=== PATIENT | female | born 1985 | race Caucasian/White ===

== ENCOUNTER 2022-11-05 01:46 | Observation (INO) | payer OTHER ==
[2022-11-05] MEDS ORDERED: SODIUM CHLORIDE 0.9% 1,000 ML IV ONE (01:59)
[2022-11-05 02:19] LABS: HCT 42.7 % (34.0-46.0); HGB 14.1 gm/dL (11.4-16.0); MCH 28.5 pg (25.0-35.0); MCV 86.5 fL (80.0-100.0); Mean Platelet Volume 7.7; Platelet Count 254 k/uL (150-450); RBC 4.93 m/uL (3.80-5.40); RDW 13.5 % (11.5-15.5); WBC 21.1 k/uL (3.8-10.6)
--- NOTE | 2022-11-05 02:19 | ED ---
General Adult HPI - General Chief complaint: Neuro Symptoms/Deficit Stated complaint: Allergic Reaction Time Seen by Provider: 11/05/22 01:58 Source: patient Mode of arrival: EMS - History of Present Illness Initial comments: This is a 37-year-old female with a reported past medical history including asthma, GERD and latent TB on antibiotics presents emergency department via EMS after ALLERGIC reaction. The patient was an overall poor historian but stated that she is currently on antibiotics for her latent TB and stated this is weak 7 where she takes medications once a week on Sundays. The patient reported that she had a previous mild reaction to the antibiotic's but was told to continue take them. The patient took the and about X earlier today and had a rash that made her go to the emergency department at a different facility. The patient was discharged home and stated that when she got home she started to have a rash again and shortness of breath therefore she called EMS. The patient reported that she had "numbness all over" and on EMS arrival, the patient was given an epinephrine IM dose. The patient on arrival denied of any rash or any concerning signs for ALLERGIC reaction. The patient initially reported that she was numb everywhere to EMS and was not cooperative with her exam. It was reported there was also significant family stress at home and is undergoing a separation. The patient denied any acute pain or distress at this time and did admit that she is "feeling better and getting back to normal." The patient denied any shortness of breath, difficulty in breathing as well as any nausea and vomiting. - Related Data Allergies Allergy/AdvReac Type Severity Reaction Status Date / Time acetaminophen AdvReac Anaphylaxis Verified 11/05/22 02:05 egg AdvReac Vomiting Verified 11/05/22 02:05 erythromycin base AdvReac Rash/Hives Verified 11/05/22 02:05 ibuprofen AdvReac Anaphylaxis Verified 11/05/22 02:05 montelukast [From Singulair] AdvReac Rash/Hives Verified 11/05/22 02:05 shellfish derived [Shellfish] AdvReac Abdominal Verified 11/05/22 02:05 Pain Review of Systems ROS Statement: Those systems with pertinent positive or pertinent negative responses have been documented in the HPI. ROS Other: All systems not noted in ROS Statement are negative. Past Medical History Past Medical History: Asthma, GERD/Reflux Past Surgical History: Section, Cholecystectomy Additional Past Surgical History / Comment(s): deviated septum Past Psychological History: No Psychological Hx Reported Smoking Status: Never smoker Past Alcohol Use History: None Reported Past Drug Use History: None Reported General Exam Limitations: no limitations General appearance: alert, in no apparent distress Head exam: Present: atraumatic, normocephalic, normal inspection Eye exam: Present: normal appearance, PERRL Pupils: Present: normal accommodation ENT exam: Present: normal exam, normal oropharynx, mucous membranes moist Neck exam: Present: normal inspection, full ROM Respiratory exam: Present: normal lung sounds bilaterally Cardiovascular Exam: Present: regular rate, normal rhythm, normal heart sounds GI/Abdominal exam: Present: soft, normal bowel sounds Extremities exam: Present: normal inspection, full ROM Back exam: Present: normal inspection, full ROM Neurological exam: Present: alert, oriented X3, CN II-XII intact Psychiatric exam: Present: normal affect, normal mood Skin exam: Present: warm, dry Course Vital Signs 11/05/22 01:49 Temperature 98.4 F Pulse Rate 115 H Respiratory 22 Rate Blood Pressure 137/99 O2 Sat by Pulse 99 Oximetry EKG Findings - EKG Comments: EKG Findings:: An EKG was obtained and was interpreted by myself showing a rate of 95, AR interval 151, QRS duration of 102 and QTC of 395. This EKG showed a normal sinus rhythm with no ST segment elevation or depression noted. Medical Decision Making - Medical Decision Making Was pt. sent in by a medical professional or institution (, [facility], PAD ASSEMBLER, urgent c are, hospital, or [facility]...) When possible be specific @ -No Did you speak to anyone other than the patient for history (EMS, parent, family, police, friend...)? What history was obtained from this source @ -Yes, EMS was present and stated that the patient had increasing improvement however still had continued generalized muscle weakness Did you review nursing and triage notes (agree or disagree)? Why? @ -I reviewed and agree with nursing and triage notes Were old charts reviewed (outside hosp., previous admission, EMS record, old EKG, old radiological studies, urgent care reports/EKG's, [facility] records)? Report findings @ -No old charts were reviewed Differential Diagnosis (chest pain, altered mental status, abdominal pain women, abdominal pain men, vaginal bleeding, weakness, fever, dyspnea, syncope, headache, dizziness, GI bleed, back pain, seizure, CVA, palpatations, mental health)? @ -Electrolyte abnormality, conversion disorder EKG interpreted by me (3pts min.). @ -As above X-rays interpreted by me (1pt min.). @ -None done CT interpreted by me (1pt min.). @ -None done U/S interpreted by me (1pt. min.). @ -None done What testing was considered but not performed or refused? (CT, X-rays, U/S, labs)? Why? @ -None What meds were considered but not given or refused? Why? @ -None Did you discuss the management of the patient with other professionals (professionals i.e. , PA, PAD ASSEMBLER, lab, RT, psych nurse, public health social worker, claims account manager, teacher, chief administrative officer, heel caser)? Give summary @ -Yes, admitting physician was contacted regarding patient admission to observation. Was smoking cessation discussed for >3mins.? @ -No Was critical care preformed (if so, how long)? @ -No Were there social determinants of health that impacted care today? How? (Homelessness, low income, unemployed, alcoholism, drug addiction, transportation, low edu. Level, literacy, decrease access to med. care, group home, rehab)? @ -No Was there de-escalation of care discussed even if they declined (Discuss DNR or withdrawal of care, Hospice)? DNR status @ -No What co-morbidities impacted this encounter? (DM, HTN, Smoking, COPD, CAD, Cancer, CVA, ARF, Chemo, Hep., AIDS, mental health diagnosis, sleep apnea, morbid obesity)? @ -Latent TB Was patient admitted / discharged? Hospital course, mention meds given and route, prescriptions, significant lab abnormalities, going to OR and other pertinent info. @ -The patient was seen and evaluated emergency department. On physical exam, the patient was resting in bed without any acute distress. Vital signs admission were stable. Due to the nature of the patient's vague complaints including generalized muscle weakness and numbness "all over her body" laboratory workup was obtained however there was no imaging at this was unlikely a focal neurologic deficit. On physical exam, the patient did have sensation in all extremities however due to effort had decreased range of motion. The patient's white blood cell count was elevated but this is secondary to the patient receiving steroids previously earlier in the day for the ALLERGIC reaction. The patient denied of any further ALLERGIC reaction type symptoms therefore did not require any further medications for this. The patient was told of the results and stated that she had improvement however stated that she still had leg heaviness in the bilateral lower extremities. I did suggest that the patient stays for observation to see neurology for further workup and evaluation however she was adamant about not staying and she wanted to leave A. The patient was convinced by her grandmother as well as during ambulation testing that she needed to stay. The patient was agreeable to this plan and was placed in observation. No computed tomography scan of the head was obtained secondary to the patient having vague, generalized muscle weakness and earlier generalized numbness, unlikely any specific neurologic deficit. The patient did state that she took her TB medications earlier yesterday and that she has had minor reactions previous see. The patient was able to ambulate in the emergency department with the assistance of myself and a nurse but did appear to have leg heaviness. The patient's primary care physician does not admit to this hospital therefore the patient was a city call patient and Dr. Yee did accept the patient for observation. The patient was placed observation with neurology on consult. Undiagnosed new problem with uncertain prognosis? @ -No Drug Therapy requiring intensive monitoring for toxicity (Heparin, Nitro, Insulin, Cardizem)? @ -No Were any procedures done? @ -No Diagnosis/symptom? @ -Generalized muscle weakness, numbness, NOS Acute, or Chronic, or Acute on Chronic? @ -Acute Uncomplicated (without systemic symptoms) or Complicated (systemic symptoms)? @ -Complicated Side effects of treatment? @ -No Exacerbation, Progression, or Severe Exacerbation? @ -No Poses a threat to life or bodily function? How? (Chest pain, USA, MA, pneumonia, PE, COPD, DKA, ARF, appy, cholecystitis, CVA, Diverticulitis, Homicidal, Suicidal, threat to staff... and all critical care pts) @ -No - Lab Data Result diagrams: 11/05/22 02:04 11/05/22 02:04 Lab Results 11/05/22 11/05/22 11/05/22 Range/Units 02:04 02:04 03:45 WBC 21.1 H (3.8-10.6) k/uL RBC 4.93 (3.80-5.40) m/uL Hgb 14.1 (11.4-16.0) gm/dL Hct 42.7 (34.0-46.0) % MCV 86.5 (80.0-100.0) fL MCH 28.5 (25.0-35.0) pg MCHC 33.0 (31.0-37.0) g/dL RDW 13.5 (11.5-15.5) % Plt Count 254 (150-450) k/uL MPV 7.7 Neutrophils % (Manual) 59 % Band Neuts % (Manual) 34 % Lymphocytes % (Manual) 2 % Monocytes % (Manual) 3 % Eosinophils % (Manual) 2 % Neutrophils # (Manual) 19.60 H (1.3-7.7) k/uL Lymphocytes # (Manual) 0.42 L (1.0-4.8) k/uL Monocytes # (Manual) 0.63 (0-1.0) k/uL Eosinophils # (Manual) 0.42 (0-0.7) k/uL Nucleated RBCs 0 (0-0) /100 WBC Manual Slide Review Performed Toxic Granulation Present Sodium 137 (137-145) mmol/L Potassium 3.9 (3.5-5.1) mmol/L Chloride 107 (98-107) mmol/L Carbon Dioxide 16 L (22-30) mmol/L Anion Gap 14 mmol/L BUN 12 (7-17) mg/dL Creatinine 0.64 (0.52-1.04) mg/dL Est GFR (CKD-EPI)AfAm >90 (>60 ml/min/1.73 sqM) Est GFR (CKD-EPI)NonAf >90 (>60 ml/min/1.73 sqM) Glucose 218 H (74-99) mg/dL Calcium 8.9 (8.4-10.2) mg/dL Magnesium 1.7 (1.6-2.3) mg/dL Total Bilirubin 1.0 (0.2-1.3) mg/dL AST 38 H (14-36) U/L ALT 39 H (4-34) U/L Alkaline Phosphatase 58 (38-126) U/L Total Protein 6.7 (6.3-8.2) g/dL Albumin 3.8 (3.5-5.0) g/dL Lipase 112 (23-300) U/L Urine Color Yellow Urine Appearance Clear (Clear) Urine pH 5.0 (5.0-8.0) Ur Specific Butler 1.004 (1.001-1.035) Urine Protein Negative (Negative) Urine Glucose (UA) 2+ H (Negative) Urine Ketones Negative (Negative) Urine Blood Negative (Negative) Urine Nitrite Negative (Negative) Urine Bilirubin Negative (Negative) Urine Urobilinogen <2.0 (<2.0) mg/dL Ur Leukocyte Esterase Negative (Negative) Urine HCG, Qual (Not Detectd) 11/05/22 Range/Units 03:45 WBC (3.8-10.6) k/uL RBC (3.80-5.40) m/uL Hgb (11.4-16.0) gm/dL Hct (34.0-46.0) % MCV (80.0-100.0) fL MCH (25.0-35.0) pg MCHC (31.0-37.0) g/dL RDW (11.5-15.5) % Plt Count (150-450) k/uL MPV Neutrophils % (Manual) % Band Neuts % (Manual) % Lymphocytes % (Manual) % Monocytes % (Manual) % Eosinophils % (Manual) % Neutrophils # (Manual) (1.3-7.7) k/uL Lymphocytes # (Manual) (1.0-4.8) k/uL Monocytes # (Manual) (0-1.0) k/uL Eosinophils # (Manual) (0-0.7) k/uL Nucleated RBCs (0-0) /100 WBC Manual Slide Review Toxic Granulation Sodium (137-145) mmol/L Potassium (3.5-5.1) mmol/L Chloride (98-107) mmol/L Carbon Dioxide (22-30) mmol/L Anion Gap mmol/L BUN (7-17) mg/dL Creatinine (0.52-1.04) mg/dL Est GFR (CKD-EPI)AfAm (>60 ml/min/1.73 sqM) Est GFR (CKD-EPI)NonAf (>60 ml/min/1.73 sqM) Glucose (74-99) mg/dL Calcium (8.4-10.2) mg/dL Magnesium (1.6-2.3) mg/dL Total Bilirubin (0.2-1.3) mg/dL AST (14-36) U/L ALT (4-34) U/L Alkaline Phosphatase (38-126) U/L Total Protein (6.3-8.2) g/dL Albumin (3.5-5.0) g/dL Lipase (23-300) U/L Urine Color Urine Appearance (Clear) Urine pH (5.0-8.0) Ur Specific Butler (1.001-1.035) Urine Protein (Negative) Urine Glucose (UA) (Negative) Urine Ketones (Negative) Urine Blood (Negative) Urine Nitrite (Negative) Urine Bilirubin (Negative) Urine Urobilinogen (<2.0) mg/dL Ur Leukocyte Esterase (Negative) Urine HCG, Qual Not Detected (Not Detectd) Disposition Clinical Impression: Generalized muscle weakness Disposition: ADMITTED IP TO THIS [facility] Condition: Stable Is patient prescribed a controlled substance at d/c from ED?: No Referrals: None,Stated [Primary Care Provider] - 1-2 days Time of Disposition: 05:20 Decision to Admit Reason: Admit from EC Decision Date: 11/05/22 Decision Time: 05:20
[2022-11-05 02:36] LABS: Band Neutrophils % 34 %; Eosinophils # (M) 0.42 k/uL (0-0.7); Lymphocytes # (M) 0.42 k/uL (1.0-4.8); Monocytes # (M) 0.63 k/uL (0-1.0); Neutrophils % (M) 59 %; Nucleated Red Blood Cells 0 /100 WBC (0-0); Total Cells Counted 200
[2022-11-05 02:37] LABS: Toxic Granulation Present
[2022-11-05 02:43] LABS: AST 38 U/L (14-36); African American GFR (CKD) >90 (>60 ml/min/1.73 sqM); Albumin 3.8 g/dL (3.5-5.0); Alkaline Phosphatase 58 U/L (38-126); Anion Gap 14 mmol/L; Blood Urea Nitrogen 12 mg/dL (7-17); Calcium 8.9 mg/dL (8.4-10.2); Carbon Dioxide 16 mmol/L (22-30); Chloride 107 mmol/L (98-107); Glucose 218 mg/dL (74-99); Lipase 112 U/L (23-300); Magnesium 1.7 mg/dL (1.6-2.3); Non-African American GFR(CKD) >90 (>60 ml/min/1.73 sqM); Potassium 3.9 mmol/L (3.5-5.1); Sodium 137 mmol/L (137-145); Total Protein 6.7 g/dL (6.3-8.2)
[2022-11-05 03:26] LABS: ALT 39 U/L (4-34)
[2022-11-05 04:01] LABS: Appearance,Urine Clear (Clear); Bilirubin,Urine Negative (Negative); Blood,Urine Negative (Negative); Color,Urine Yellow; Glucose,Urine (UA) 2+ (Negative); Ketones,Urine Negative (Negative); Leukocyte Esterase,Urine Negative (Negative); Nitrite,Urine Negative (Negative); Protein,Urine Negative (Negative); Specific Gravity,Urine 1.004 (1.001-1.035); Urobilinogen,Urine <2.0 mg/dL (<2.0)
[2022-11-05] MEDS ORDERED: NALOXONE 0.4 MG/ML 1 ML VIAL IV PRN (05:23)
--- NOTE | 2022-11-05 06:54 | P.HPIM ---
History of Present Illness H&P Date: 11/05/22 The patient is a 37-year-old female with a PMH of latent TB currently on week 7 of a 3 month course of likely isoniazid and rifapentine (patient does not remember the exact names but states that it's a once weekly 2 tablet dose) who presents to the emergency room with complaints of weakness, numbness, and lethargy. The patient states that she normally takes her about latent TB doses each Saturday and last Saturday when she took this dose, she developed severe flulike symptoms. She reportedly contacted the [facility] Department with whom she has been following who advised her that the symptoms are common with this regimen. Her symptoms gradually improved last week. Earlier today, she took her regular dose again at around 5 PM and as she was walking in a stroller with her 7-month-old baby, she again developed flulike symptoms but this time also reportedly developed hives and severe weakness. The weakness was so profound that she reportedly was unable to take her child out of the stroller and went into the house by herself where her symptoms gradually worsened. She subsequently activated EMS who asked for the patient upon arrival found the patient to have highs and be hypotensive. They administered epinephrine injection and took the patient to [facility]. There the patient was prescribed a course of steroids and was discharged home. After returning home, the patient then developed quickly worsening profound severe weakness and numbness of bilateral lower extremities along with bilateral upper extremities with left greater than right as well as numbness involving the entire face. EMS was again activated by the patient's grandmother who again administered epinephrine. The patient was brought into the [facility] at that time. The patient was reportedly and O 3 and was endorsing the above symptoms of weakness and numbness. She reported feeling better at the time of interview. She denied experiencing headache, chest discomfort, shortness of breath, nausea, vomiting, abdominal pain, diarrhea. The patient states that she has been under a tremendous amount of stress at home as she is undergoing a separation and managing a 7-month-old baby by herself with some family support. ED documentation reviewed and case discussed with ED provider. Review of systems: Pertinent positives and negatives as discussed in HPI, a complete review of systems was performed and all other systems are negative. Physical examination: Vital signs reviewed General: non toxic, no distress, appears at stated age, normal weight Derm: no unusual rashes/lesions, warm Head: atraumatic, normocephalic, symmetric Eyes: EOMI, no lid lag, anicteric sclera, pupils equal round reactive to light ENT: Nose and ears atraumatic Neck: No cervical lymphadenopathy, trachea midline, supple Mouth: no lip lesion, mucus membranes moist Cardiovascular: S1S2 reg, no murmur, positive dorsalis pedis pulse bilateral, no edema Lungs: CTA bilateral, no rhonchi, no rales, no accessory muscle use Abdominal: soft, nontender to palpation, no guarding Ext: muscle strength 2 out of 5 bilateral lower extremities, strength 4 out of 5 right upper extremity and 2 out of 5 left upper extremity grossly, no gross muscle atrophy, no contractures Neuro: CN II-XI grossly intact, no facial asymmetry noted, decreased sensation involving all 4 extremities Psych: Alert, oriented, appropriate affect Assessment: Weakness involving bilateral lower extremities and upper extremities left greater than right with numbness, rule out CVA versus conversion disorder Possible ALLERGIC reaction to isoniazid and Rifapentine (flulike illness, angioedema, and rash are very common side effect of the above regimen) Leukocytosis Hyperglycemia Abnormal LFTs Data Review: Laboratory evaluation in the emergency room was remarkable for leukocytosis of 21.1, CO2 16, glucose 218, AST 38, ALT 39, and an unremarkable UA. Plan: Neurology consulted Neuro checks CT brain ordered Fall precautions Leukocytosis and hyperglycemia likely due to steroids received earlier today at [facility] DVT prophylaxis: Heparin subq The patient is admitted with an anticipated less than 2 midnight stay for evaluation of weakness and numbness CODE STATUS: Full Code Discussed with: Patient Anticipated discharge place: Home Past Medical History Past Medical History: Asthma, GERD/Reflux Past Surgical History: Section, Cholecystectomy Additional Past Surgical History / Comment(s): deviated septum Past Psychological History: No Psychological Hx Reported Smoking Status: Never smoker Past Alcohol Use History: None Reported Past Drug Use History: None Reported - Past Family History Mother Family Medical History: Hypertension Medications and Allergies Allergies Allergy/AdvReac Type Severity Reaction Status Date / Time acetaminophen AdvReac Anaphylaxis Verified 11/05/22 02:05 egg AdvReac Vomiting Verified 11/05/22 02:05 erythromycin base AdvReac Rash/Hives Verified 11/05/22 02:05 ibuprofen AdvReac Anaphylaxis Verified 11/05/22 02:05 [facility] [[facility] AdvReac Rash/Hives Verified 11/05/22 02:05 shellfish derived [Shellfish] AdvReac Abdominal Verified 11/05/22 02:05 Pain Physical Exam Vitals: Vital Signs Temp Pulse Resp BP Pulse Ox 11/05/22 06:03 85 19 132/72 100 11/05/22 01:49 98.4 F 115 H 22 137/99 99 Intake and Output 11/04/22 11/04/22 11/05/22 14:59 22:59 06:59 Other: Weight 70.307 kg Results CBC & Chem 7: 11/05/22 02:04 11/05/22 02:04 Labs: Abnormal Lab Results - Last 24 Hours (Table) 11/05/22 11/05/22 11/05/22 Range/Units 02:04 02:04 03:45 WBC 21.1 H (3.8-10.6) k/uL Neutrophils # (Manual) 19.60 H (1.3-7.7) k/uL Lymphocytes # (Manual) 0.42 L (1.0-4.8) k/uL Carbon Dioxide 16 L (22-30) mmol/L Glucose 218 H (74-99) mg/dL AST 38 H (14-36) U/L ALT 39 H (4-34) U/L Urine Glucose (UA) 2+ H (Negative)
--- NOTE | 2022-11-05 08:24 | CT ---
EXAMINATION TYPE: CT brain wo con DATE OF EXAM: 11/05/2022 COMPARISON: INDICATION: Generalized weakness DLP: 1064.4 mGycm, Automated exposure control for dose reduction was used. CONTRAST: None CT of the brain is performed utilizing 3 mm thick sections through the posterior fossa and 3 mm thick sections through the remaining calvarium. Study is performed within 24 hours of arrival to the hosp ital. No abnormal hyperdensity is present to suggest an acute intracranial hemorrhage. No mass lesion is evident. No acute infarcts are evident. Ventricles and sulci are appropriate for the patient age. There is diffuse mucosal thickening through the maxillary sinuses. There is complete opacification of the Ethmoid air cells and sphenoid sinuses and frontal sinuses. Correlate for pansinusitis. Paranasa l sinus polyposis could be considered. IMPRESSIONS: 1. No acute intracranial process. Follow-up MRI can be performed as clinically indicated. 2. Pansinusitis versus sinus polyposis opacifying the paranasal sinuses.
[2022-11-05] MEDS ORDERED: NON FORMULARY DRUG (Albuterol Inhaler 90 MCG Puff) INHALATION PRN (14:06)
[2022-11-05] MEDS ORDERED: PANTOPRAZOLE 40 MG TABLET PO STA (14:34)
[2022-11-05] MEDS ORDERED: LORATADINE 10 MG TAB PO STA (14:34)
[2022-11-05] MEDS: ALBUTEROL NEBULIZED 2.5 MG/3 ML INHALATION PRN ×2 (15:14→20:08)
--- NOTE | 2022-11-05 15:14 | P.CNNES ---
History of Present Illness Consult date: 11/05/22 Requesting physician: Javon Foley Reason for Consult: Generalized weakness History of Present Illness: Patient is a 37-year-old right-handed female, with history of asthma, GERD, who is undergoing treatment for TB for latent tuberculosis for the last 7 weeks, came to the hospital by ambulance early this morning at 1:46 AM for possible drug reaction. 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 She became PPD positive and was diagnosed with latent TB 2 months ago. She started taking 2 different type of pills, which she claims is total 9 tablets each time, once a week every Saturday. She takes 2 different kind of pills, 3 of one type and 6 tablets of another. Yesterday she took as usual 9 tablets at 5 PM. About 30 minutes after, while she was out for a walk, she noticed blurred vision. She came inside her home, and noticed her eyes were red. She laid down. She thought it was an ALLERGIC reaction, took Mary Ellen. She noticed a rash and felt her throat was closing. She had difficulty breathing, therefore she was taken to [facility] where she was noted to have very low blood pressure. She was given steroids, her blood pressure was improved and she was sent home at around 10-11 PM. Patient states that when she arrived home, she sat down at the dining table for dinner and was drinking soup. She suddenly started feeling numbness in the feet bilaterally. She was holding juice and laid down, noticed that she couldn't move her legs. She noticed numbness progressed from feet to the knees, then the shoulder and in the face bilaterally. That it started affecting her arms all the way to the hand. She describes her facial numbness involving the cheeks bilaterally. EMS flow sheet not available in the chart. Vital signs on arrival blood pressure 137/99, pulse rate 115, temperature 98.4. Blood test shows WBC 21.1, hemoglobin 14.1 with normal platelets 254. Chem-7 is normal, AST mildly elevated 38, ALT 39. UA is negative. Urine hCG negative. EKG shows sinus rhythm. CT brain revealed no acute intracranial process. Pansinusitis versus sinus polyposis opacifying the paranasal sinuses. I personally reviewed CT head, agree with the findings. There is extensive opacification of bilateral frontal, complete ethmoid, bilateral sphenoid and near complete opacification of bilateral maxillary sinuses. At present patient states that when she tries to make any effort, the numbness comes back. When she sits down and lays down, her symptoms are better. Overall the symptoms involves both feet, left more than right, both arms, left side more. Also her left facial is more numb as compared to the right. She states that her symptoms on the right side is "barely noticeable". Patient states that she denies any slurred speech, facial droop or mental confusion or loss of consciousness, although patient states that her grandmother felt that she was not following orders or answering questions appropriately although she herself felt she was fine. She still feels weakness in the legs. Patient states the symptoms at present "comes and goes". Patient does take Mary Ellen, AcipHex, Ventolin inhaler, Trelegy Ellipta. Also on 2 different type of TB medications. She has never smoked, does not drink alcoho l. She is healthy, denies any blood pressure diabetes. Review of Systems All general symptoms only on the day of antibiotics Constitutional: Reports chills, Reports fatigue, Reports fever, Reports sweats, Reports weakness Eyes: bilateral blurred vision, denies diplopia, denies pain, denies loss of vision Ears: deny: decreased hearing, ear discharge, earache, tinnitus Ears, nose, mouth and throat: Reports nasal congestion, Reports post-nasal drip, Reports sinus pain, Reports sinus pressure, Denies headache, Denies sore throat Cardiovascular: Denies chest pain, Denies shortness of breath Respiratory: Denies cough, Denies excessive sputum Gastrointestinal: Denies abdominal pain, Denies constipation, Denies diarrhea, Denies nausea, Denies vomiting Genitourinary: Reports incomplete emptying, Denies dysuria, Denies hematuria Musculoskeletal: Reports muscle weakness, Reports myalgias, Denies low back pain, Denies neck pain Integumentary: Denies pruritus, Denies rash Neurological: Reports as per HPI Psychiatric: Denies anxiety, Denies depression Endocrine: Denies fatigue, Denies weight change Hematologic/Lymphatic: Denies easy bleeding, Denies easy bruising Allergic/Immunologic: Reports seasonal allergies, Reports wheezing Past Medical History Past Medical History: Asthma, GERD/Reflux Past Surgical History: Section, Cholecystectomy Additional Past Surgical History / Comment(s): deviated septum Past Psychological History: No Psychological Hx Reported Smoking Status: Never smoker Past Alcohol Use History: None Reported Past Drug Use History: None Reported - Past Family History Mother Family Medical History: Hypertension Medications and Allergies Home Medications Medication Instructions Recorded Confirmed Type Albuterol Inhaler [Ventolin Hfa 2 puff INHALATION RT-QID PRN 11/05/22 11/05/22 History Inhaler] Albuterol Nebulized [Ventolin 2.5 mg INHALATION RT-QID PRN 11/05/22 11/05/22 History Nebulized] Fexofenadine HCl [Mary Ellen Allergy] 180 mg PO DAILY 11/05/22 11/05/22 History Fluticasone/Umeclidin/Vilanter 1 puff INHALATION RT-DAILY 11/05/22 11/05/22 History [Trelegy Ellipta 200-62.5-25] RABEprazole SODIUM [Aciphex] 20 mg PO DAILY 11/05/22 11/05/22 History Allergies Allergy/AdvReac Type Severity Reaction Status Date / Time acetaminophen Allergy Anaphylaxis Verified 11/05/22 07:11 aspirin Allergy Anaphylaxis Verified 11/05/22 07:11 erythromycin base Allergy Rash/Hives Verified 11/05/22 07:11 ibuprofen Allergy Anaphylaxis Verified 11/05/22 07:11 kiwi Allergy Unknown Verified 11/05/22 07:11 montelukast [From Singulair] Allergy Rash/Hives Verified 11/05/22 07:11 NSAIDS (Non-Steroidal Allergy Anaphylaxis Verified 11/05/22 07:11 Anti-Inflamma egg AdvReac Vomiting Verified 11/05/22 07:11 shellfish derived [Shellfish] AdvReac Abdominal Verified 11/05/22 07:11 Pain dust Allergy Unknown Uncoded 11/05/22 07:11 figs Allergy Unknown Uncoded 11/05/22 07:11 preservatives Allergy Unknown Uncoded 11/05/22 07:11 Physical Examination - Vital Signs Vital Signs: Vital Signs Temp Pulse Pulse Resp BP BP Pulse Ox 11/05/22 08:20 98.1 F 72 18 98/63 99 11/05/22 06:03 85 19 132/72 100 11/05/22 01:49 98.4 F 115 H 22 137/99 99 Intake and Output 11/04/22 11/05/2223 22:59 06:59 14:59 Output Total 387 Balance -387 Output: Post Void Residual 387 Other: Weight 70.307 kg Patient is a young female, very pleasant, in no acute distress. Patient is alert awake oriented to time place and person. Speech and language functions are normal. Patient can name and repeat very well. No aphasia or dysarthria. Attention, concentration and fund of knowledge is adequate. On cranial nerve examination, pupils are equal, round and reacting to light, visual perales are full on confrontation, with no neglect on double simultaneous stimulation. Extraocular muscles are intact with no nystagmus. Face is symmetric, tongue protrudes to the midline. Palatal elevation and sensation normal, hearing and shoulder shrug normal, facial sensation normal. On muscle strength testing, there is no pronator drift and the strength is normal in arms and legs distally and proximally. Deep tendon reflexes are symmetric 2 at the biceps, 2 brachioradialis, 1 at the knees, 1+ ankles and plantars downgoing bilaterally. Sensory to touch is feeling less on the left side of the body as compared to the right. There is no neglect on double simultaneous stimulation. Cerebellar function showed no ataxia for [id number] testing. No dysdiadochokinesia. No ataxia for [id number] testing on either side. Tone and bulk of muscles normal. Gait deferred.. On general examination, there is no carotid bruit or murmur, S1-S2 audible. Chest is clear on consultation. Abdomen is soft nontender. No organomegaly, bowel sounds present. Peripheral pulses are present. No edema. Results - Laboratory Findings CBC and BMP: 11/05/22 02:04 11/05/22 02:04 Abnormal Lab Findings: Abnormal Labs 11/05/22 11/05/22 11/05/22 02:04 02:04 03:45 WBC 21.1 H Neutrophils # (Manual) 19.60 H Lymphocytes # (Manual) 0.42 L Carbon Dioxide 16 L Glucose 218 H AST 38 H ALT 39 H Urine Glucose (UA) 2+ H Assessment and Plan Assessment: * Acute onset of paresthesias involving all 4 extremities including bilateral facial region, (left side more than right), and subjective weakness since last night. Her symptoms have improved although has persistent left-sided paresthesias. Her current neurological examination revealed normal muscle strength and cranial nerves with some decreased sensation on the left side of the body. Exact cause remains uncertain. * Recent diagnosis of latent TB, undergoing treatment with ATT medication for the last 7 weeks. * Pansinusitis noted on CT head. * History of DNS surgery in the past. * GERD * Asthma Plan: * Patient will undergo MRI of the brain and cervical spine with and without contrast to rule out structural abnormality. Patient has no headache, therefore we will hold off on MRV. * B12, folate, MMA, B6. * Consult ID for possible adverse effect to antituberculous medication. * Consult ENT for pansinusitis. * PT OT, evaluate gait. * Neurology will follow. Thank you for the consult. Time with Patient: Greater than 30
--- NOTE | 2022-11-05 16:40 | MR ---
EXAMINATION TYPE: MR brain wo cspine wo/w DATE OF EXAM: 11/05/2022 COMPARISON: 11/05/2022 CT brain HISTORY: Weakness and numbness CONTRAST: Performed utilizing 7 mL intravenous Gadavist gadolinium contrast. TECHNIQUE: Multiplanar, multiecho imaging on a 3.0 Juliette magnet is performed through the brain. Stud y is performed within 24 hours of arrival to the hospital. The craniovertebral junction is normal. The pituitary is normal. Diffusion-weighted imaging is performed. No abnormal hyperintensity is present to suggest an acute i ntracranial infarct or acute ischemic change. There is some linear white matter change within the right centrum semiovale adjacent to the ventricle . This is hyperintense on T2-weighted sequences. No enhancement is evident. Ventricles and sulci are appropriate for the patient age. Mucosal thickening is through maxillary sinus and ethmoid air cells. Frontal sinuses and sphenoid sin uses are opacified or mucosal thickening. IMPRESSIONS: 1. Solitary white matter changes in the right centrum semiovale is nonspecific. Microvascular ischemi c change, sclerosis, alignment disease, migraine headaches, vasculitis could be considered. This is n ot out of portion to the patient's age.
--- NOTE | 2022-11-05 22:22 | P.CONS ---
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 did not recall any history of exposure to somebody with pulmonary tuberculosis and no family history of TB patient recently tested positive with QuantiFERON TB Gold test which was done as we requested to for her [place] and the patient was started on weekly INH and rifampatin with the patient has taken for about 7 weeks now, patient mention after she took her dose on Saturday evening she started having increasing weakness numbness and lethargy and apparently patient noticed to having some flulike symptoms developed hives and severe weakness for the patient was taken to the [facility] ER with the patient did received dose of steroids she improved and subsequently was discharged home however the patient mention when she get home she noticed to having increasing numbness and weakness to bilateral lower extremity, for which EMS was called and the patient was brought to [facility] ER patient did mention she did have a resolution of her rash and hand numbness as well as weakness to lower extremities improving patient denies having any headache or URI symptoms has been complaining of some shortness of breath she attributing to her asthma denies have any nausea no vomiting no abdominal pain and no diarrhea patient on presentation to hospital to have a white count of 21.1 with a left shift creatinine has been normal AST ALT is mildly elevated urine has been negative patient did have a CT of the brain no acute intracranial process pansinusitis versus sinus polyposis infectious disease was consulted because of her allergic reaction to the latent TB medication and concern for possible sinusitis, patient currently denies having any pain to the sinuses area or any purulent nasopharyngeal secretion Review of Systems Positive point has been mentioned in HPI rest of the systems are negative Past Medical History Past Medical History: Asthma, GERD/Reflux Past Surgical History: Section, Cholecystectomy Additional Past Surgical History / Comment(s): deviated septum Past Psychological History: No Psychological Hx Reported Smoking Status: Never smoker Past Alcohol Use History: None Reported Past Drug Use History: None Reported - Past Family History Mother Family Medical History: Hypertension Medications and Allergies Home Medications Medication Instructions Recorded Confirmed Type Albuterol Inhaler [Ventolin Hfa 2 puff INHALATION RT-QID PRN 11/05/22 11/05/22 History Inhaler] Albuterol Nebulized [Ventolin 2.5 mg INHALATION RT-QID PRN 11/05/22 11/05/22 History Nebulized] Fexofenadine HCl [Mary Ellen Allergy] 180 mg PO DAILY 11/05/22 11/05/22 History Fluticasone/Umeclidin/Vilanter 1 puff INHALATION RT-DAILY 11/05/22 11/05/22 History [Trelegy Ellipta 200-62.5-25] RABEprazole SODIUM [Aciphex] 20 mg PO DAILY 11/05/22 11/05/22 History EPINEPHrine (Auto Inject) [Epipen] 0.3 mg IM ONCE PRN #1 each 11/06/22 Rx Allergies Allergy/AdvReac Type Severity Reaction Status Date / Time acetaminophen Allergy Anaphylaxis Verified 11/05/22 07:11 aspirin Allergy Anaphylaxis Verified 11/05/22 07:11 diclofenac [From Voltaren] Allergy Dyspnea Verified 11/05/22 18:11 erythromycin base Allergy Rash/Hives Verified 11/05/22 07:11 ibuprofen Allergy Anaphylaxis Verified 11/05/22 07:11 kiwi Allergy Unknown Verified 11/05/22 07:11 montelukast [From Singulair] Allergy Rash/Hives Verified 11/05/22 07:11 NSAIDS (Non-Steroidal Allergy Anaphylaxis Verified 11/05/22 07:11 Anti-Inflamma prifinium Allergy Dyspnea Verified 11/05/22 18:11 simethicone [From Mylicon] Allergy Rash/Hives Verified 11/05/22 18:11 egg AdvReac Vomiting Verified 11/05/22 07:11 shellfish derived [Shellfish] AdvReac Abdominal Verified 11/05/22 07:11 Pain dust Allergy Unknown Uncoded 11/05/22 07:11 figs Allergy Unknown Uncoded 11/05/22 07:11 preservatives Allergy Unknown Uncoded 11/05/22 07:11 Physical Exam Vitals: Vital Signs Temp Pulse Pulse Resp BP BP Pulse Ox 11/05/22 11:53 72 108/71 97 11/05/22 11:45 70 112/70 98 11/05/22 11:15 64 106/60 99 11/05/22 11:00 69 108/69 99 11/05/22 08:20 98.1 F 72 18 98/63 99 11/05/22 06:03 85 19 132/72 100 11/05/22 01:49 98.4 F 115 H 22 137/99 99 Intake and Output 11/04/22 11/05/22 11/05/22 22:59 06:59 14:59 Output Total 387 Balance -387 Output: Post Void Residual 387 Other: Weight 70.307 kg GENERAL DESCRIPTION: Middle-aged female lying in bed, no distress. No tachypnea or accessory muscle of respiration use. HEENT: Shows Pallor , no scleral icterus. Oral mucous membrane is dry. NECK: Trachea central, no thyromegaly. LUNGS: Unlabored breathing. Clear to auscultation anteriorly. No wheeze or crackle. HEART: S1, S2, regular rate and rhythm. ABDOMEN: Soft, no tenderness , guarding or rigidity EXTREMITIES: No edema of feet. SKIN: No rash, no masses palpable. NEUROLOGICAL: The patient is awake, alert, oriented x3, mood and affect normal. Results CBC & Chem 7: 11/06/22 07:01 11/06/22 07:01 Labs: Abnormal Lab Results - Last 24 Hours (Table) 11/05/22 11/05/22 11/05/22 Range/Units 02:04 02:04 03:45 WBC 21.1 H (3.8-10.6) k/uL Neutrophils # (Manual) 19.60 H (1.3-7.7) k/uL Lymphocytes # (Manual) 0.42 L (1.0-4.8) k/uL Carbon Dioxide 16 L (22-30) mmol/L Glucose 218 H (74-99) mg/dL AST 38 H (14-36) U/L ALT 39 H (4-34) U/L Urine Glucose (UA) 2+ H (Negative) Assessment and Plan (1) Latent tuberculosis Status: Acute Code(s): Z22.7 - LATENT TUBERCULOSIS SNOMED Code(s): 02412088 (2) Drug reaction Status: Acute Code(s): T50.905A - ADVERSE EFFECT OF UNSP DRUG/MEDS/BIOL SUBST, INIT SNOMED Code(s): 77346834 Plan: 1patient presented to hospital with what is described to be weakness generalized rash flulike symptoms possibly related to allergic reaction to her latent TB medication the patient is currently taking the form of INH and rifampatin weekly and both medication can cause the same reaction it would be hard to pinpoint which medication in order to responsible for her current symptoms, current CDC recommendation required the use of these 2 drugs for latent TB 2-for now we will recommend not resuming her INH and rifampin 3-patient will be advised to follow-up with her physician at the [facility] on discharge 4-as far as abnormality seen on the CT regarding the sinus disease possible related to allergy clinic not behaving as bacterial sinusitis and no need for systemic antibiotic therapy We will follow on clinical condition and cultures to further adjust medication if needed Thank you for this consultation we will follow the patient along with you Time with Patient: Greater than 30
[2022-11-06] MEDS ORDERED: PANTOPRAZOLE 40 MG TABLET PO SCH (07:30)
[2022-11-06 07:38] VITALS: BP 103/63; RESP 18; TEMP 98
[2022-11-06] MEDS ORDERED: SYMBICORT 160-4.5 MCG INHALER INHALATION SCH (08:00)
[2022-11-06 08:18] LABS: African American GFR (CKD) >90 (>60 ml/min/1.73 sqM); Anion Gap 7 mmol/L; Blood Urea Nitrogen 9 mg/dL (7-17); Calcium 8.6 mg/dL (8.4-10.2); Carbon Dioxide 23 mmol/L (22-30); Chloride 108 mmol/L (98-107); Glucose 94 mg/dL (74-99); Non-African American GFR(CKD) >90 (>60 ml/min/1.73 sqM); Potassium 3.9 mmol/L (3.5-5.1); Sodium 138 mmol/L (137-145)
[2022-11-06] MEDS: IPRATROPIUM 0.5 MG/2.5 ML NEBU INHALATION SCH ×2 (08:26→11:53)
[2022-11-06 08:47] VITALS: PULSE 88
[2022-11-06] MEDS ORDERED: LORATADINE 10 MG TAB PO SCH (09:00)
--- NOTE | 2022-11-06 11:12 | P.DS ---
Providers Date of admission: 11/05/22 05:23 Expected date of discharge: 11/06/22 Attending physician: Renato Yee MD Consults: 11/05/22 05:23 Consult Physician Routine Consulting Provider: Mike Lenz Consult Reason/Comments: Generalized weakness Do you want consulting provider notified?: Yes, Notify in am 11/05/22 10:53 Consult Physician Routine Consulting Provider: Antoine Madden Consult Reason/Comments: Latent TB, on TB meds with reaction, sinusitis Do you want consulting provider notified?: Yes 11/05/22 10:55 Consult Physician Routine Consulting Provider: Ed Truong Consult Reason/Comments: Pansinusitis Do you want consulting provider notified?: Yes Primary care physician: Stated None Hospital Course: Assessment: Weakness involving bilateral lower extremities and upper extremities left greater than right with numbness, rule out CVA versus conversion disorder Possible ALLERGIC reaction to isoniazid and Rifapentine (flulike illness, angioedema, and rash are very common side effect of the above regimen) Leukocytosis Hyperglycemia Abnormal LFTs Hospital course: The patient is a 37-year-old female with a PMH of latent TB currently on week 7 of a 3 month course of likely isoniazid and rifapentine (patient does not remember the exact names but states that it's a once weekly 2 tablet dose) who presented to the emergency room with complaints of weakness, numbness, and lethargy. Laboratory evaluation in the emergency room was remarkable for leukocytosis of 21.1, CO2 16, glucose 218, AST 38, ALT 39, and an unremarkable UA. Brain CT was negative for acute pathology. EKG showed normal sinus rhythm with normal axis and no evidence of ischemia. Case was discussed with the em ergency room provider, decision was made to admit the patient for neurology consultation. Neurology recommended MRI of the brain/cervical spine. This MRI did show cells or white matter changes in the right centrum semiovale which was nonspecific. She was up slightly discharged home with instructions to follow-up with neurology regarding these findings. Infectious disease was also consulted given her severe reaction to her latent TB regimen. She was instructed to discontinue her latent TB regimen and follow-up with the health department regarding alternative modalities of treatment for latent TB. 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 I spent 34 minutes corrugating this discharge on 11/06 Gen: awake, alert HEENT: normocephalic, atraumatic, good hearing acuity, moist mucous membranes Resp: good air exchange, breathing comfortably with no accessory muscle use CVS: good distal perfusion x 4, GI: soft, NTTP, ND : no SPT, no CVAT, walker catheter not present MSK: no pitting edema, no clubbing Neuro: non-focal, moving all extremities Psych: cooperative, euthymic mood Plan: Neurology consulted Neuro checks CT brain ordered Fall precautions Leukocytosis and hyperglycemia likely due to steroids received earlier today at [facility] DVT prophylaxis: Heparin subq The patient is admitted with an anticipated less than 2 midnight stay for evaluation of weakness and numbness CODE STATUS: Full Code Discussed with: Patient Anticipated discharge place: Home Patient Condition at Discharge: Good Plan - Discharge Summary Discharge Rx Participant: Yes New Discharge Prescriptions: New EPINEPHrine (Auto Inject) [Epipen] 0.3 mg IM ONCE PRN #1 each PRN Reason: Anaphylaxis Continue Fexofenadine HCl [Mary Ellen Allergy] 180 mg PO DAILY RABEprazole SODIUM [Aciphex] 20 mg PO DAILY Fluticasone/Umeclidin/Vilanter [Trelegy Ellipta 200-62.5-25] 1 puff INHALATION RT-DAILY Albuterol Nebulized [Ventolin Nebulized] 2.5 mg INHALATION RT-QID PRN PRN Reason: Shortness Of Breath Albuterol Inhaler [Ventolin Hfa Inhaler] 2 puff INHALATION RT-QID PRN PRN Reason: Shortness Of Breath Discharge Medication List Albuterol Inhaler [Ventolin Hfa Inhaler] 2 puff INHALATION RT-QID PRN 11/05/22 [History] Albuterol Nebulized [Ventolin Nebulized] 2.5 mg INHALATION RT-QID PRN 11/05/22 [History] Fexofenadine HCl [Mary Ellen Allergy] 180 mg PO DAILY 11/05/22 [History] Fluticasone/Umeclidin/Vilanter [Trelegy Ellipta 200-62.5-25] 1 puff INHALATION RT-DAILY 11/05/22 [History] RABEprazole SODIUM [Aciphex] 20 mg PO DAILY 11/05/22 [History] EPINEPHrine (Auto Inject) [Epipen] 0.3 mg IM ONCE PRN #1 each 11/06/22 [Rx] Follow up Appointment(s)/Referral(s): None,Stated [Primary Care Provider] - 1-2 days Activity/Diet/Wound Care/Special Instructions: See your Allergy/child care development specialist as soon as possible Discontinue your TB medication and follow up with the Health Department regarding alternative TB regimens
[2022-11-06 14:22] LABS: Basophils # (A) 0.06 X 10*3/uL (0.00-0.10); Basophils % (A) 0.9 %; HCT 39.7 % (37.2-46.3); HGB 12.3 g/dL (12.0-15.0); Immature Grans, Automated 0.6 %; Lymphocytes # (A) 2.58 X 10*3/uL (0.90-5.00); Lymphocytes % (A) 40.1 %; MCH 27.3 pg (27.0-32.0); Mean Platelet Volume 10.5 fL (9.5-12.2); Monocytes # (A) 0.51 X 10*3/uL (0.20-1.00); Monocytes % (A) 7.9 %; NRBC Per 100 WBC 0 /100 WBCS (0.0-0.0); Neutrophils # (A) 2.35 X 10*3/uL (1.80-7.70); Neutrophils % (A) 36.5 %; Platelet Count 231 X 10*3/uL (140-440); RBC 4.51 X 10*6/uL (4.10-5.20); RDW 13.7 % (11.5-14.5); WBC 6.44 X 10*3/uL (4.50-10.00)
[2022-11-07 11:31] LABS: Lyme IgG/IgM 0.32 Index
--- NOTE | 2022-11-13 12:38 | P.PN ---
Subjective Progress Note Date: 11/06/22 Principal diagnosis: Latent TB and drug reaction Patient is a 37-year-old female born in [place], who has been diagnosed with latent TB and has been on the combination of weekly INH and rifampaten, presented to hospital with rash shortness of breath concerning for drug reaction offer the patient took her seventh dose of medication. On today's evaluation that is 11/06/2022, the patient denies having any fever or any chills, the patient is breathing comfortably, the rash has resolved no nausea no vomiting no abdominal pain or diarrhea feeling better and patient has been cleared for discharge by admitting team Objective - Vital Signs Vital signs: Vital Signs Temp 98.0 F 11/06/22 06:50 Pulse 88 11/06/22 08:42 Resp 18 11/06/22 06:50 BP 103/63 11/06/22 06:50 Pulse Ox 100 11/06/22 06:50 FiO2 Intake & Output 11/05/22 11/06/22 11/06/22 18:59 06:59 18:59 Intake Total 354 118 Output Total 387 Balance -33 118 Weight 70.307 kg Intake: Oral 354 118 Output: Post Void Residual 387 Other: Voiding Method Bedside Commode External Catheter # Voids 1 2 - Exam GENERAL DESCRIPTION: A middle-age female up in bed in no distress RESPIRATORY SYSTEM: Unlabored breathing , decreased breath sounds at bases HEART: S1 S2 regular rate and rhythm , ABDOMEN: Soft , no tenderness EXTREMITIES: No edema feet - Labs CBC & Chem 7: 11/06/22 07:01 11/06/22 07:01 Labs: Abnormal Lab Results - Last 24 Hours (Table) 11/06/22 Range/Units 07:01 Chloride 108 H (98-107) mmol/L Assessment and Plan (1) Drug reaction Status: Acute Code(s): T50.905A - ADVERSE EFFECT OF UNSP DRUG/MEDS/BIOL SUBST, INIT SNOMED Code(s): 77385499 (2) Latent tuberculosis Status: Acute Code(s): Z22.7 - LATENT TUBERCULOSIS SNOMED Code(s): 72229800 Plan: 1patient presented to hospital with what is described to be weakness generalized rash flulike symptoms possibly related to allergic reaction to her latent TB medication the patient is currently taking the form of INH and rifampatin weekly and both medication can cause the same reaction it would be hard to pinpoint which medication in order to responsible for her current symptoms, current CDC recommendation required the use of these 2 drugs for laten t TB 2-for now we will recommend not resuming her INH and rifampin,3-patient will be advised to follow-up with her physician at the [facility] apartment on discharge, she can follow with me if she wants to discuss further treatment questions Answered 3-as far as abnormality seen on the CT regarding the sinus disease possible related to allergy clinic not behaving as bacterial sinusitis and no need for systemic antibiotic therapy on discharge Time with Patient: Less than 30
== END 2022-11-06 12:40 | disposition home or self-care (01) ==
LOC: EC 01:46 → 6NMEDSUR 05:23
PROVIDERS: ADMIT Internal Medicine; ATTEND Internal Medicine
DX: M62.81 Muscle weakness (generalized) (principal); Z22.7 Latent tuberculosis; J32.4 Chronic pansinusitis; T78.3XXA Angioneurotic edema, initial encounter; T36.6X5A Adverse effect of rifampicins, initial encounter; R20.2 Paresthesia of skin; H53.8 Other visual disturbances; K21.9 Gastro-esophageal reflux disease without esophagitis; J45.909 Unspecified asthma, uncomplicated; I95.9 Hypotension, unspecified; R73.9 Hyperglycemia, unspecified; D72.829 Elevated white blood cell count, unspecified; R74.01 Elevation of levels of liver transaminase levels; Z79.51 Long term (current) use of inhaled steroids; Z79.899 Other long term (current) drug therapy; Z91.02 Food additives allergy status; Z91.018 Allergy to other foods; Z88.6 Allergy status to analgesic agent; Z88.1 Allergy status to other antibiotic agents; Z91.012 Allergy to eggs; Z91.013 Allergy to seafood; Z88.8 Allergy status to other drugs, medicaments and biological substances; Z91.048 Other nonmedicinal substance allergy status; Z63.5 Disruption of family by separation and divorce; Z90.49 Acquired absence of other specified parts of digestive tract; Z98.891 History of uterine scar from previous surgery; Z98.890 Other specified postprocedural states; Z82.49 Family history of ischemic heart disease and other diseases of the circulatory system
CPT/HCPCS: 96360; 99285; 36415; 94640 ×4; 93005; 84207; 83921; 80053; 80048; 82607; 82746; 83690; 83735; 85025 ×2; 81003; 81025; 86618; 70450; 70551; 72156; G0378 ×2; A9585

== ENCOUNTER → 2022-12-05 | Outpatient (CLI) | payer OTHER | END | disposition home or self-care (01) | LOC: LABMAIN 20:20 | PROVIDERS: ATTEND Allergy & Immunology | DX: Z53.9 Procedure and treatment not carried out, unspecified reason (principal) ==

== ENCOUNTER 2023-01-15 21:44 | Emergency (ER) | payer OTHER ==
[2023-01-15 21:53] VITALS: TEMP 97.7
[2023-01-15] MEDS ORDERED: DEXAMETHASONE SOD PHOSPHATE 10 MG/ML 1 ML VIAL IVP STA (22:09)
[2023-01-15] MEDS ORDERED: SODIUM CHLORIDE 0.9% 1,000 ML IV STA (22:09)
[2023-01-15] MEDS ORDERED: METOCLOPRAMIDE 5 MG/ML 2 ML VIAL IVP STA (22:09)
[2023-01-15] MEDS ORDERED: diphenhydrAMINE 50 MG/ML 1 ML VIAL IVP STA (22:09)
[2023-01-15] MEDS ORDERED: CAFFEINE-SODIUM BENZOATE 500 MG in SODIUM CHLORIDE 0.9% 1,000 ML IVPB ONE (22:10)
--- NOTE | 2023-01-15 23:12 | ED ---
Headache HPI - General Chief Complaint: Headache Stated Complaint: Nausea, headache, dizziness Time Seen by Provider: 01/15/23 21:55 Mode of arrival: wheelchair Limitations: no limitations - History of Present Illness Initial Comments: 37-year-old female presenting with chief complaint of headache. Patient had a lumbar puncture performed earlier today, she is not complaining of a headache at the back of her head that is worse when she sits up. She admits to nausea with no vomiting. Patient is unable to tell me why she had a lumbar puncture today, however reviewing her previous records she was previously admitted for episodes of numbness and tingling, MRI obtained during that admission was concerning for possible demyelinating disease. She denies vision or hearing changes, numbness, tingling, weakness, chest pain, difficulty breathing, dizziness. - Related Data Home Medications Medication Instructions Recorded Confirmed Albuterol Inhaler [Ventolin Hfa 2 puff INHALATION RT-QID PRN 11/05/22 11/05/22 Inhaler] Albuterol Nebulized [Ventolin 2.5 mg INHALATION RT-QID PRN 11/05/22 11/05/22 Nebulized] Fexofenadine HCl [Mary Ellen Allergy] 180 mg PO DAILY 11/05/22 11/05/22 Fluticasone/Umeclidin/Vilanter 1 puff INHALATION RT-DAILY 11/05/22 11/05/22 [Trelegy Ellipta 200-62.5-25] RABEprazole SODIUM [Aciphex] 20 mg PO DAILY 11/05/22 11/05/22 Previous Rx's Medication Instructions Recorded EPINEPHrine (Auto Inject) [Epipen] 0.3 mg IM ONCE PRN #1 each 11/06/22 Allergies Allergy/AdvReac Type Severity Reaction Status Date / Time acetaminophen Allergy Anaphylaxis Verified 01/15/23 21:53 aspirin Allergy Anaphylaxis Verified 01/15/23 21:53 diclofenac [From Voltaren] Allergy Dyspnea Verified 01/15/23 21:53 erythromycin base Allergy Rash/Hives Verified 01/15/23 21:53 ibuprofen Allergy Anaphylaxis Verified 01/15/23 21:53 kiwi Allergy Unknown Verified 01/15/23 21:53 montelukast [From Singulair] Allergy Rash/Hives Verified 01/15/23 21:53 NSAIDS (Non-Steroidal Allergy Anaphylaxis Verified 01/15/23 21:53 Anti-Inflamma prifinium Allergy Dyspnea Verified 01/15/23 21:53 simethicone [From Mylicon] Allergy Rash/Hives Verified 01/15/23 21:53 egg AdvReac Vomiting Verified 01/15/23 21:53 shellfish derived [Shellfish] AdvReac Abdominal Verified 01/15/23 21:53 Pain dust Allergy Unknown Uncoded 01/15/23 21:53 figs Allergy Unknown Uncoded 01/15/23 21:53 preservatives Allergy Unknown Uncoded 01/15/23 21:53 Review of Systems ROS Statement: Those systems with pertinent positive or pertinent negative responses have been documented in the HPI. ROS Other: All systems not noted in ROS Statement are negative. Past Medical History Past Medical History: Asthma, GERD/Reflux History of Any Multi-Drug Resistant Organisms: None Reported Past Surgical History: Section, Cholecystectomy Additional Past Surgical History / Comment(s): deviated septum Past Anesthesia/Blood Transfusion Reactions: No Reported Reaction Past Psychological History: No Psychological Hx Reported Smoking Status: Never smoker Past Alcohol Use History: None Reported Past Drug Use History: None Reported - Past Family History Mother Family Medical History: Hypertension General Exam Limitations: no limitations General appearance: alert, in no apparent distress Head exam: Present: atraumatic, normocephalic, normal inspection Eye exam: Present: normal appearance, PERRL, EOMI. Absent: scleral icterus, conjunctival injection, periorbital swelling Pupils: Present: normal accommodation Neck exam: Present: normal inspection, full ROM Respiratory exam: Present: normal lung sounds bilaterally. Absent: respiratory distress, wheezes, rales, rhonchi, stridor Cardiovascular Exam: Present: regular rate, normal rhythm, normal heart sounds. Absent: systolic murmur, diastolic murmur, rubs, gallop, clicks Neurological exam: Present: alert, oriented X3, CN II-XII intact Expanded Patient oriented to: Present: person, place, time Speech: Present: fluid speech Cranial nerves: EOM's Intact: Normal Eye Response: (4) open spontaneously Motor Response: (6) obeys commands Verbal Response: (5) oriented [place] Total: 15 Psychiatric exam: Present: normal affect, normal mood Skin exam: Present: warm, dry, intact, normal color. Absent: rash Course Vital Signs 01/15/23 01/15/23 21:50 23:33 Temperature 97.7 F Pulse Rate 78 55 L Respiratory 18 16 Rate Blood Pressure 168/105 97/62 O2 Sat by Pulse 96 100 Oximetry Medical Decision Making - Medical Decision Making Was pt. sent in by a medical professional or institution (, ROMEO, PEANUT SEPARATOR, urgent care, hospital, or [facility]...) When possible be specific @ -No Did you speak to anyone other than the patient for history (EMS, parent, family, police, friend...)? What history was obtained from this source @ -No Did you review nursing and triage notes (agree or disagree)? Why? @ -I reviewed and agree with nursing and triage notes Were old charts reviewed (outside hosp., previous admission, EMS record, old EKG, old radiological studies, urgent care reports/EKG's, [facility] records)? Report findings @ -No old charts were reviewed Differential Diagnosis (chest pain, altered mental status, abdominal pain women, abdominal pain men, vaginal bleeding, weakness, fever, dyspnea, syncope, headache, dizziness, GI bleed, back pain, seizure, CVA, palpatations, mental health, musculoskeletal)? @ -MDM Differential Headache: Migraine, tension, cluster, carbon monoxide, central venous thrombosis, pension karma temporal arteritis, acute closure glaucoma, intercranial hemorrhage, mastoiditis, sinusitis, head injury this is not meant to be an all-inclusive list. EKG interpreted by me (3pts min.). @ -As above X-rays interpreted by me (1pt min.). @ -None done CT interpreted by me (1pt min.). @ -None done U/S interpreted by me (1pt. min.). @ -None done What testing was considered but not performed or refused? (CT, X-rays, U/S, labs)? Why? @ -None What meds were considered but not given or refused? Why? @ -None Did you discuss the management of the patient with other professionals (professionals i.e. , ROMEO, PEANUT SEPARATOR, lab, RT, psych nurse, social media campaign manager, fuel storage technician, teacher, hydrological technical officer, casework supervisor)? Give summary @ -No Was smoking cessation discussed for >3mins.? @ -No Was critical care preformed (if so, how long)? @ -No Were there social determinants of health that impacted care today? How? (Homelessness, low income, unemployed, alcoholism, drug addiction, transportation, low edu. Level, literacy, decrease access to med. care, senior care, rehab)? @ -No Was there de-escalation of care discussed even if they declined (Discuss DNR or withdrawal of care, Hospice)? DNR status @ -No What co-morbidities impacted this encounter? (DM, HTN, Smoking, COPD, CAD, Cancer, CVA, ARF, Chemo, Hep., AIDS, mental health diagnosis, sleep apnea, morbid obesity)? @ -None Was patient admitted / discharged? Hospital course, mention meds given and route, prescriptions, significant lab abnormalities, going to OR and other pertinent info. @ -37-year-old female presenting with chief complaint of headache and nausea. She had a lumbar puncture performed earlier today. On physical examination there are no focal neurological deficits. Patient reports improvement after IV fluids, Reglan, Decadron, caffeine, and Benadryl. She states the headache is completely gone. She'll be discharge and is instructed to follow-up with her PCP and neurologist. Follow-up with PCP. Report back to ER with any new or worsening symptoms. Discussed return parameters and answered all questions. Patient conveyed verbal understanding and agreed to the plan. I discussed this case in detail with my attending Dr. Perkins Undiagnosed new problem with uncertain prognosis? @ -No Drug Therapy requiring intensive monitoring for toxicity (Heparin, Nitro, Insulin, Cardizem)? @ -No Were any procedures done? @ -No Diagnosis/symptom? @ -Headache post lumbar puncture Acute, or Chronic, or Acute on Chronic? @ -Acute Uncomplicated (without systemic symptoms) or Complicated (systemic symptoms)? @ -Uncomplicated Side effects of treatment? @ -No Exacerbation, Progression, or Severe Exacerbation? @ -No Poses a threat to life or bodily function? How? (Chest pain, [place], [place], pneumonia, PE, COPD, DKA, ARF, appy, cholecystitis, CVA, Diverticulitis, Homicidal, Suicidal, threat to staff... and all critical care pts) @ -low likelihood Disposition Clinical Impression: Lumbar puncture headache Disposition: HOME SELF-CARE Condition: Good Instructions (If sedation given, give patient instructions): Acute Headache (ED), Lumbar Puncture (ED) Additional Instructions: Follow-up with your PCP and neurologist. Report back to ER with any new or wor sening symptoms. Is patient prescribed a controlled substance at d/c from ED?: No Referrals: None,Stated [Primary Care Provider] - 1-2 days Patricia Reynoso MD [Medical Doctor] - 1-2 days Time of Disposition: 23:32
[2023-01-15 23:34] VITALS: RESP 16
[2023-01-16 00:45] VITALS: BP 105/69; PULSE 64
== END 2023-01-16 00:47 | disposition home or self-care (01) ==
LOC: EC 21:44
DX: G97.1 Other reaction to spinal and lumbar puncture (principal); J45.909 Unspecified asthma, uncomplicated; K21.9 Gastro-esophageal reflux disease without esophagitis; Z79.899 Other long term (current) drug therapy; Z88.1 Allergy status to other antibiotic agents; Z88.6 Allergy status to analgesic agent; Z91.012 Allergy to eggs; Z91.018 Allergy to other foods; Z91.013 Allergy to seafood; Z90.49 Acquired absence of other specified parts of digestive tract; Y84.4 Aspiration of fluid as the cause of abnormal reaction of the patient, or of later complication, without mention of misadventure at the time of the procedure
CPT/HCPCS: 99284; 96365; 96375 ×3; 96361; J1200; J1100; J2765

== ENCOUNTER 2023-01-16 16:42 | Observation (INO) | payer OTHER ==
--- NOTE | 2023-01-16 17:57 | ED ---
Headache HPI - General Chief Complaint: Headache Stated Complaint: headache, nausea Time Seen by Provider: 01/16/23 17:54 Mode of arrival: EMS Limitations: no limitations - History of Present Illness Initial Comments: Kimberly is a 37yo F with PMH of chronic migraines she is brought to the ER via ambulance for evaluation of severe headache. Patient reports that yesterday morning she had an LP and during the LP developed a sudden severe headache. She was seen in our emergency department yesterday her headache was treated with medication she was feeling better she went home and was able to sleep but upon waking again has a severe headache. She reports it so severe she cannot open her eyes though when she does she doesn't have any vision changes. She has no weakness or inability to move her extremities to severe pain in the entire head. - Related Data Home Medications Medication Instructions Recorded Confirmed Albuterol Inhaler [Ventolin Hfa 2 puff INHALATION RT-QID PRN 11/05/22 01/16/23 Inhaler] Albuterol Nebulized [Ventolin 2.5 mg INHALATION RT-QID PRN 11/05/22 01/16/23 Nebulized] Fexofenadine HCl [Mary Ellen Allergy] 180 mg PO DAILY 11/05/22 01/16/23 Fluticasone/Umeclidin/Vilanter 1 puff INHALATION RT-DAILY 11/05/22 01/16/23 [Trelegy Ellipta 200-62.5-25] RABEprazole SODIUM [Aciphex] 20 mg PO DAILY 11/05/22 01/16/23 Mepolizumab [Nucala] 1 dose SQ Q28D 01/16/23 01/16/23 Previous Rx's Medication Instructions Recorded EPINEPHrine (Auto Inject) [Epipen] 0.3 mg IM ONCE PRN #1 each 11/06/22 Allergies Allergy/AdvReac Type Severity Reaction Status Date / Time acetaminophen Allergy Anaphylaxis Verified 01/16/23 18:27 aspirin Allergy Anaphylaxis Verified 01/16/23 18:27 diclofenac [From Voltaren] Allergy Dyspnea Verified 01/16/23 18:27 erythromycin base Allergy Rash/Hives Verified 01/16/23 18:27 ibuprofen Allergy Anaphylaxis Verified 01/16/23 18:27 kiwi Allergy Unknown Verified 01/16/23 18:27 montelukast [From Singulair] Allergy Rash/Hives Verified 01/16/23 18:27 NSAIDS (Non-Steroidal Allergy Anaphylaxis Verified 01/16/23 18:27 Anti-Inflamma prifinium Allergy Dyspnea Verified 01/16/23 18:27 simethicone [From Mylicon] Allergy Rash/Hives Verified 01/16/23 18:27 egg AdvReac Vomiting Verified 01/16/23 18:27 shellfish derived [Shellfish] AdvReac Abdominal Verified 01/16/23 18:27 Pain dust Allergy Unknown Uncoded 01/15/23 21:53 figs Allergy Unknown Uncoded 01/15/23 21:53 preservatives Allergy Unknown Uncoded 01/15/23 21:53 Review of Systems ROS Statement: Those systems with pertinent positive or pertinent negative responses have been documented in the HPI. ROS Other: All systems not noted in ROS Statement are negative. Past Medical History Past Medical History: Asthma, GERD/Reflux History of Any Multi-Drug Resistant Organisms: None Reported Past Surgical History: Section, Cholecystectomy Additional Past Surgical History / Comment(s): deviated septum Past Anesthesia/Blood Transfusion Reactions: No Reported Reaction Past Psychological History: No Psychological Hx Reported Smoking Status: Never smoker Past Alcohol Use History: None Reported Past Drug Use History: None Reported - Past Family History Mother Family Medical History: Hypertension General Exam - General Exam Comments Initial Comments: Physical Exam GENERAL: Patient is well-developed and well-nourished. Patient is nontoxic and well-hydrated and is in no distress. HENT: Normocephalic, Atraumatic. EYES: PERRL, EOMI PULMONARY: Unlabored respirations. CARDIOVASCULAR: RRR Warm and well perfused extremities ABDOMEN: Non-distended SKIN: No rashes or bruising : Deferred NEUROLOGIC: Alert and oriented Normal speech Normal gait MUSCULOSKELETAL: Moving all extremities with no apparent injury PSYCHIATRIC: No SI/HI Limitations: no limitations Course Vital Signs 01/16/23 01/16/23 01/16/23 17:13 18:37 21:19 Temperature 98.7 F Pulse Rate 102 H 88 71 Respiratory 18 22 20 Rate Blood Pressure 127/84 110/95 114/82 O2 Sat by Pulse 99 97 97 Oximetry 01/16/23 22:15 Temperature Pulse Rate 90 Respiratory 18 Rate Blood Pressure 136/88 O2 Sat by Pulse 99 Oximetry Medical Decision Making - Medical Decision Making The patient was seen and evaluated, history is obtained from the patient and review of medical record Patient had an LP yesterday morning for workup of MS, she developed a headache she received IV medication here and was discharged home. Arrival she is writhing in pain complaining of a headache will not open her eyes Labs and head CT were obtained Labs with mild leukocytosis no other abnormalities Head CT with no acute findings Patient was able to sleep after receiving morphine however upon waking she again was complaining of headache and felt like she was worsening, repeat dose of pain medications was ordered. At this point the patient has been evaluated 2 times in the ER received multiple doses of pain medications has persistent headache after LP. This headache is not consistent with a post-LP headache, it is not positional is not relieved by laying down it is not worse while sitting or standing in fact patient reported she felt somewhat better when standing. Patient to be admitted for pain management. Dr Camarillo accepts admission Was pt. sent in by a medical professional or institution (, PA, REIMBURSEMENT MANAGER, urgent care, hospital, or long-term...) When possible be specific @ -No Did you speak to anyone other than the patient for history (EMS, parent, family, police, friend...)? What history was obtained from this source @ -No Did you review nursing and triage notes (agree or disagree)? Why? @ -I reviewed and agree with nursing and triage notes Were old charts reviewed (outside hosp., previous admission, EMS record, old EKG, old radiological studies, urgent care reports/EKG's, long-term records)? Report findings @ -Previous ER visit was reviewed Differential Diagnosis (chest pain, altered mental status, abdominal pain women, abdominal pain men, vaginal bleeding, weakness, fever, dyspnea, syncope, headache, dizziness, GI bleed, back pain, seizure, CVA, palpatations, mental health, musculoskeletal)? @ -Differential Headache: Migraine, tension, cluster, carbon monoxide, central venous thrombosis, pension karma temporal arteritis, acute closure glaucoma, intercranial hemorrhage, mastoiditis, sinusitis, head injury, this is not meant to be an all-inclusive list. EKG interpreted by me (3pts min.). @ -As above X-rays interpreted by me (1pt min.). @ -None done CT interpreted by me (1pt min.). @ -None done U/S interpreted by me (1pt. min.). @ -None done What testing was considered but not performed or refused? (CT, X-rays, U/S, labs)? Why? @ -None What meds were considered but not given or refused? Why? @ -None Did you discuss the management of the patient with other professionals (professionals i.e. , PA, REIMBURSEMENT MANAGER, lab, RT, psych nurse, drug abuse social worker, miner placer, teacher, workers' compensation hearings officer, pillowcase sewer)? Give summary @ -No Was smoking cessation discussed for >3mins.? @ -No Was critical care preformed (if so, how long)? @ -No Were there social determinants of health that impacted care today? How? (Ho melessness, low income, unemployed, alcoholism, drug addiction, transportation, low edu. Level, literacy, decrease access to med. care, nursing home, rehab)? @ -No Was there de-escalation of care discussed even if they declined (Discuss DNR or withdrawal of care, Hospice)? DNR status @ -No What co-morbidities impacted this encounter? (DM, HTN, Smoking, COPD, CAD, Cancer, CVA, ARF, Chemo, Hep., AIDS, mental health diagnosis, sleep apnea, morbid obesity)? @ -None Was patient admitted / discharged? Hospital course, mention meds given and route, prescriptions, significant lab abnormalities, going to OR and other pertinent info. @ -Admit Undiagnosed new problem with uncertain prognosis? @ -No Drug Therapy requiring intensive monitoring for toxicity (Heparin, Nitro, Insulin, Cardizem)? @ -No Were any procedures done? @ -No Diagnosis/symptom? @ -Intractable headache Acute, or Chronic, or Acute on Chronic? @ -Acute Uncomplicated (without systemic symptoms) or Complicated (systemic symptoms)? @ -default Side effects of treatment? @ -No Exacerbation, Progression, or Severe Exacerbation? @ -No Poses a threat to life or bodily function? How? (Chest pain, [place], [place], pneumonia, PE, COPD, DKA, ARF, appy, cholecystitis, CVA, Diverticulitis, Homicidal, Suicidal, threat to staff... and all critical care pts) @ -No - Lab Data Result diagrams: 01/16/23 18:19 01/16/23 18:34 Lab Results 01/16/23 01/16/23 Range/Units 18:19 18:34 WBC 11.1 H (3.8-10.6) k/uL RBC 5.08 (3.80-5.40) m/uL Hgb 15.7 (11.4-16.0) gm/dL Hct 43.4 (34.0-46.0) % MCV 85.4 (80.0-100.0) fL MCH 30.9 (25.0-35.0) pg MCHC 36.2 (31.0-37.0) g/dL RDW 13.1 (11.5-15.5) % Plt Count 195 (150-450) k/uL MPV 8.4 Neutrophils % 67 % Lymphocytes % 24 % Monocytes % 6 % Eosinophils % 1 % Basophils % 0 % Neutrophils # 7.4 (1.3-7.7) k/uL Lymphocytes # 2.6 (1.0-4.8) k/uL Monocytes # 0.7 (0-1.0) k/uL Eosinophils # 0.1 (0-0.7) k/uL Basophils # 0.0 (0-0.2) k/uL Sodium 138 (137-145) mmol/L Potassium 4.0 (3.5-5.1) mmol/L Chloride 106 (98-107) mmol/L Carbon Dioxide 18 L (22-30) mmol/L Anion Gap 14 mmol/L BUN 8 (7-17) mg/dL Creatinine 0.54 (0.52-1.04) mg/dL Est GFR (CKD-EPI)AfAm >90 (>60 ml/min/1.73 sqM) Est GFR (CKD-EPI)NonAf >90 (>60 ml/min/1.73 sqM) Glucose 77 (74-99) mg/dL Calcium 10.1 (8.4-10.2) mg/dL Total Bilirubin 0.5 (0.2-1.3) mg/dL AST 26 (14-36) U/L ALT 19 (4-34) U/L Alkaline Phosphatase 107 (38-126) U/L Total Protein 8.6 H (6.3-8.2) g/dL Albumin 4.9 (3.5-5.0) g/dL Disposition Clinical Impression: Headache Disposition: ADMITTED IP TO THIS HOSP Condition: Stable Instructions (If sedation given, give patient instructions): Acute Headache (ED) Referrals: None,Stated [Primary Care Provider] - 1-2 days
[2023-01-16 18:33] LABS: Basophils % (A) 0 %; Eosinophils # (A) 0.1 k/uL (0-0.7); Eosinophils % (A) 1 %; HCT 43.4 % (34.0-46.0); HGB 15.7 gm/dL (11.4-16.0); Lymphocytes # (A) 2.6 k/uL (1.0-4.8); Lymphocytes % (A) 24 %; MCH 30.9 pg (25.0-35.0); MCHC 36.2 g/dL (31.0-37.0); MCV 85.4 fL (80.0-100.0); Mean Platelet Volume 8.4; Monocytes # (A) 0.7 k/uL (0-1.0); Monocytes % (A) 6 %; Neutrophils # (A) 7.4 k/uL (1.3-7.7); Neutrophils % (A) 67 %; Platelet Count 195 k/uL (150-450); RBC 5.08 m/uL (3.80-5.40); RDW 13.1 % (11.5-15.5); WBC 11.1 k/uL (3.8-10.6)
[2023-01-16] MEDS ORDERED: ONDANSETRON 4 MG/2 ML VIAL IVP STA (18:43)
[2023-01-16] MEDS ORDERED: MORPHINE SULFATE 4 MG/ML SYRINGE IVP STA ×2 (18:43→22:03)
[2023-01-16 19:15] LABS: ALT 19 U/L (4-34); AST 26 U/L (14-36); African American GFR (CKD) >90 (>60 ml/min/1.73 sqM); Albumin 4.9 g/dL (3.5-5.0); Alkaline Phosphatase 107 U/L (38-126); Anion Gap 14 mmol/L; Blood Urea Nitrogen 8 mg/dL (7-17); Calcium 10.1 mg/dL (8.4-10.2); Carbon Dioxide 18 mmol/L (22-30); Chloride 106 mmol/L (98-107); Glucose 77 mg/dL (74-99); Non-African American GFR(CKD) >90 (>60 ml/min/1.73 sqM); Sodium 138 mmol/L (137-145); Total Bilirubin 0.5 mg/dL (0.2-1.3); Total Protein 8.6 g/dL (6.3-8.2)
--- NOTE | 2023-01-16 21:03 | CT ---
EXAMINATION TYPE: CT brain wo con DATE OF EXAM: 01/16/2023 COMPARISON: 11/05/2022 INDICATION: headache, nausea. pt had a lumbar puncture done yesterday morning at a different hospital DLP: 1178.4 mGycm, Automated exposure control for dose reduction was used. CONTRAST: None CT of the brain is performed utilizing 3 mm thick sections through the posterior fossa and 3 mm thick sections through the remaining calvarium. Study is performed within 24 hours of arrival to the hosp [place]. No abnormal hyperdensity is present to suggest an acute intracranial hemorrhage. No mass lesion is evident. No acute infarcts are evident. Ventricles and sulci are appropriate for the patient age. Quadrigeminal plate and ambient cistern ar e normal. Foramen magnum appears normal. There is opacification of the right maxillary sinus. Ethmoid air cells are opacified. Sphenoid sinuse s are opacified. Frontal sinuses are opacified IMPRESSIONS: 1. No acute intracranial process. 2. Opacification throughout the paranasal sinuses. Correlate for pansinusitis and nasal polyposis.
[2023-01-16] MEDS ORDERED: NALOXONE 0.4 MG/ML 1 ML VIAL IV PRN (22:57)
[2023-01-16] MEDS ORDERED: MORPHINE SULFATE 4 MG/ML SYRINGE IV PRN (22:57)
[2023-01-16 23:06] LABS: Partial Thromboplastin Time 22.7 sec (22.0-30.0); Prothrombin Time 10.4 sec (9.0-12.0)
[2023-01-16] MEDS: SODIUM CHLORIDE 0.9% 1,000 ML IV SCH (23:24)
[2023-01-17] MEDS ORDERED: ALBUTEROL NEBULIZED 2.5 MG/3 ML INHALATION PRN (00:46)
--- NOTE | 2023-01-17 01:01 | P.HPIM ---
History of Present Illness H&P Date: 01/16/23 Chief Complaint: headache 37 year old female with possible MS, moderate persistent asthma , GERD patient coming in due to persistent headache post lumbar tap done yesterday in the morning by her neurologist as part of her workup for MS. since then she continued to have headache, she does not think its positional , but associated with some dizziness , no new focal neuro deficits . no erythema or swelling at site of LP. no falls no head injuries, no changes in vision or hearing she denies any fever, chills, or URI symptoms , denies any chest pain or SOB , abd pain ,nausea or vomiting. denies any tobacco smoking, illicit drugs or alcohol Review of Systems Pertinent positives as noted in HPI. All other systems were reviewed and are n egative Past Medical History Past Medical History: Asthma, GERD/Reflux History of Any Multi-Drug Resistant Organisms: None Reported Past Surgical History: Section, Cholecystectomy Additional Past Surgical History / Comment(s): deviated septum Past Anesthesia/Blood Transfusion Reactions: No Reported Reaction Past Psychological History: No Psychological Hx Reported Smoking Status: Never smoker Past Alcohol Use History: None Reported Past Drug Use History: None Reported - Past Family History Mother Family Medical History: Hypertension Medications and Allergies Home Medications Medication Instructions Recorded Confirmed Type Albuterol Inhaler [Ventolin Hfa 2 puff INHALATION RT-QID PRN 11/05/22 01/16/23 History Inhaler] Albuterol Nebulized [Ventolin 2.5 mg INHALATION RT-QID PRN 11/05/22 01/16/23 History Nebulized] Fexofenadine HCl [Mary Ellen Allergy] 180 mg PO DAILY 11/05/22 01/16/23 History Fluticasone/Umeclidin/Vilanter 1 puff INHALATION RT-DAILY 11/05/22 01/16/23 History [Trelegy Ellipta 200-62.5-25] RABEprazole SODIUM [Aciphex] 20 mg PO DAILY 11/05/22 01/16/23 History EPINEPHrine (Auto Inject) [Epipen] 0.3 mg IM ONCE PRN #1 each 11/06/22 01/16/23 Rx Mepolizumab [Nucala] 1 dose SQ Q28D 01/16/23 01/16/23 History Allergies Allergy/AdvReac Type Severity Reaction Status Date / Time acetaminophen Allergy Anaphylaxis Verified 01/16/23 18:27 aspirin Allergy Anaphylaxis Verified 01/16/23 18:27 diclofenac [From Voltaren] Allergy Dyspnea Verified 01/16/23 18:27 erythromycin base Allergy Rash/Hives Verified 01/16/23 18:27 ibuprofen Allergy Anaphylaxis Verified 01/16/23 18:27 kiwi Allergy Unknown Verified 01/16/23 18:27 montelukast [From Singulair] Allergy Rash/Hives Verified 01/16/23 18:27 NSAIDS (Non-Steroidal Allergy Anaphylaxis Verified 01/16/23 18:27 Anti-Inflamma prifinium Allergy Dyspnea Verified 01/16/23 18:27 simethicone [From Mylicon] Allergy Rash/Hives Verified 01/16/23 18:27 egg AdvReac Vomiting Verified 01/16/23 18:27 shellfish derived [Shellfish] AdvReac Abdominal Verified 01/16/23 18:27 Pain dust Allergy Unknown Uncoded 01/15/23 21:53 figs Allergy Unknown Uncoded 01/15/23 21:53 preservatives Allergy Unknown Uncoded 01/15/23 21:53 Physical Exam Vitals: Vital Signs Temp Pulse Resp BP Pulse Ox 01/16/23 22:15 90 18 136/88 99 01/16/23 21:19 71 20 114/82 97 01/16/23 18:37 88 22 110/95 97 01/16/23 17:13 98.7 F 102 H 18 127/84 99 Intake and Output 01/16/23 01/16/23 01/17/23 14:59 22:59 06:59 Other: Weight 70.307 kg Constitutional: No acute distress, conversant, pleasant Eyes: Anicteric sclerae, moist conjunctiva, Pupils equal round reactive to light ENMT: NC/AT Oropharynx clear, no erythema, or exudates Neck: Supple, no masses, or JVD No carotid bruits No thyromegaly Lungs: Clear to auscultation Clear to percussion Normal respiratory effort, no accessory muscle use Cardiovascular: Heart regular in rate and rhythm, No murmurs, gallops, or rubs No peripheral edema Abdominal: Soft Nontender, no guarding, rebound or rigidity Abdomen moving with respiration Normoactive bowel sounds No hepatomegaly, No splenomegaly No palpable mass No abdominal wall hernia noted Skin: Normal temperature, tone, texture, turgor No induration No subcutaneous nodules No rash, lesions No ulcers Extremities: No digital cyanosis No clubbing Pedal pulses intact and symmetrical Radial pulses intact and symmetrical No calf tenderness Psychiatric: Alert and oriented to person, place and time Appropriate affect fair judgement Neuro Muscles Strength 5/5 in all 4 extremities Sensation to light touch grossly present throughout Cranial nerves II-XII grossly intact Lymphatics: no palpable cervical or supraclavicular lymph nodes Results CBC & Chem 7: 01/16/23 18:19 01/16/23 18:34 Labs: Abnormal Lab Results - Last 24 Hours (Table) 01/16/23 01/16/23 Range/Units 18:19 18:34 WBC 11.1 H (3.8-10.6) k/uL Carbon Dioxide 18 L (22-30) mmol/L Total Protein 8.6 H (6.3-8.2) g/dL Assessment and Plan Assessment: 37 year old female with MS , moderate persistent asthma, coming in for persistent headache post LP , I discussed the case with ED doc, and her neurologist recommended admission for possible blood patch. 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
[2023-01-17] MEDS: PANTOPRAZOLE 40 MG TABLET PO SCH (06:14)
[2023-01-17] MEDS: LORATADINE 10 MG TAB PO SCH (07:46)
[2023-01-17] MEDS: SYMBICORT 80-4.5 MCG INHALER INHALATION SCH ×2 (08:05→20:05)
[2023-01-17] MEDS: IPRATROPIUM 0.5 MG/2.5 ML NEBU INHALATION SCH ×4 (08:05→20:06)
[2023-01-17] MEDS ORDERED: PROCHLORPERAZINE INJ 10 MG/2 ML VIAL IVP STA (10:18)
[2023-01-17] MEDS ORDERED: diphenhydrAMINE 50 MG/ML 1 ML VIAL IVP STA (10:18)
--- NOTE | 2023-01-17 13:00 | P.PCN ---
Date of Procedure: 01/17/23 Procedure(s) Performed: Operation= epidural blood patch. preoperative diagnosis= post dural puncture headache. Post operative diagnoses= post dural puncture headache. Anesthesia= lidocaine 1% 3 mL for skin and subcu infiltration. Condition= stable. Complications= none. Indication for the procedure= this patient had lumbar puncture done recently, for diagnostic study for multiple sclerosis, was done by her neurologist ,, and currently patient complaining of severe positional headache, improved with the supine position and increased with the sitting and standing position, and she is diagnosed with post dural puncture headache, there is no focal neurological deficit, no fever,, and no neck stiffness, patient is a good candidate to have epidural blood patch, because the conservative treatment failed, risks and benefits of the procedure discussed with the patient and agreed with proceeding, Description of the procedure= patient in sitting position, back lumbar area prepped with chlorhexidine x3 times then the back draped , then L5 S1 interlaminar space local infiltration of the skin and subcu tissues with lidocaine 1% 3 mL, then 20 -gauge Tuohy needle, advanced at the L5-S1 interlaminar space, as positive loss of resistance to normal saline, was no heme and no paresthesia, no cerebrospinal fluid, then after that 16 mL of autologous blood taken under strict sterile technique from the left antecubital area was prepped with the chlorhexidine 3 times, and using Angiocath 16 ML of the block taken from the left antecubital vein under strict sterile technique injected in the epidural space after negative aspiration for heme or cerebrospinal fluid, and there was no paresthesia, and after 16 ML of the blood injected in the epidural space and headache improved, and patient tolerated the procedure well without any complication and patient discharged home after discharge criteria met and patient will follow up with the pain clinic in 2-4 weeks
[2023-01-17] MEDS: SODIUM CHLORIDE 0.9% 1,000 ML IV SCH ×2 (13:48→22:53)
--- NOTE | 2023-01-17 19:56 | P.PN ---
Subjective Progress Note Date: 01/17/23 Hospital course: Patient is a pleasant 37-year-old female with a past medical history of moderate persistent asthma, GERD, chronic sinusitis/ALLERGIES and currently undergoing evaluation by neurologist for MS. Patient presented to the hospital on 01/16/23 with reports of persistent uncontrolled headache. Patient reports she underwent LP and neurology office for testing of MS earlier in the day and shortly after developed severe intractable headache. Patient reports associated symptoms include nausea, photosensitivity, and dizziness. She underwent full evaluation in the emergency department. Labs completed and reviewed. CBC unremarkable. Coags patient profile normal findings. CMP also unremarkable. CT head was completed and negative for acute intercranial process showing opacification throughout the paranasal sinuses. Physical exam: Patient seen and fully evaluated at bedside this morning. Patient reports persistent continued headache once changed with photosensitivity. Orders placed for Benadryl 50 mg IVP and Compazine 10 mg IVP. Personally discussed plan of care with anesthesiologist/pain management physician, , patient to undergo procedure for epidural blood patch later today. Vital signs reviewed and stable. General: Nontoxic, no distress and appears stated age. Derm: Skin warm and dry, normal coloration for ethnicity. Head: Atraumatic, normocephalic and symmetric. Eyes: EOMs intact, no lid lag, and anicteric sclera Mouth: no lip lesions, mucus membranes moist Cardiovascular: regular rate and rhythm with normal S1S2, no murmur, positive posterior tibial pulses bilaterally, and cap refill < 2 seconds. Lungs: Respirations even, regular, and unlabored on room air. Lungs CTA bilaterally, no rhonchi, no rales, no wheezing, and no accessory muscle usage. Abdominal: soft, nontender to palpation, no guarding, no appreciable o rganomegaly Ext: ROM intact. No gross muscle atrophy, no edema, no contractures Neuro: Speech clear, face symmetrical and CN II-XII grossly intact with no noted focal neuro deficits Psych: Alert and oriented to person, place, time, and situation. Appropriate and pleasant affect. Assessment and Plan of Care: Intractable headache status post lumbar puncture -Consult placed to anesthesiologist/pain management physician and discussed patient undergoing procedure for epidural blood patch later today . -Neurology consulted for evaluation. -Reviewed CT of head negative for acute intercranial process showing opacification throughout paranasal sinuses consistent with previously known chronic ALLERGIES and sinus issues. -Orders placed for Benadryl 50 mg IVP and Compazine 10 mg IVP 1 dose for he adache cocktail. -Continue with morphine 4 mg IVP as needed for severe breakthrough pain as patient reports ALLERGIES to both NSAIDs and Tylenol resulting in anaphylaxis. -Continue with gentle IV fluid hydration with 0.9% normal saline at 75 miles per hour. Moderate persistent asthma, not in acute exacerbation -Continue daily medication regimen with Symbicort and Claritin. -DuoNeb as needed for shortness of breath and/or wheezing. CODE STATUS: Full code DVT prophylaxis: Heparin Discussed with: Patient, RN, an anesthesiologist Anticipated discharge date: 24-[address]: Home Patient was seen independently by Nurse Pracitioner. This document was prepared using [employer] dictation software. Please allow for errors in estimator binding, while rare they do occur. I reviewed the documentation as provided by the ROBIN above, who is the original author of this note. I agree with the documented assessment and plan, with the following changes: none Objective - Vital Signs Vital signs: Vital Signs Temp 97.7 F 01/17/23 07:00 Pulse 72 01/17/23 08:17 Resp 18 01/17/23 07:00 BP 95/60 01/17/23 07:00 Pulse Ox 98 01/17/23 08:05 FiO2 Intake & Output 01/16/23 01/17/23 01/17/23 18:59 06:59 18:59 Weight 70.307 kg 70.307 kg Other: Voiding Method Toilet # Voids 1 - Labs CBC & Chem 7: 01/16/23 18:19 01/16/23 18:34 Labs: Abnormal Lab Results - Last 24 Hours (Table) 01/16/23 01/16/23 Range/Units 18:19 18:34 WBC 11.1 H (3.8-10.6) k/uL Carbon Dioxide 18 L (22-30) mmol/L Total Protein 8.6 H (6.3-8.2) g/dL
[2023-01-17] MEDS: HEPARIN SODIUM,PORCINE/PF 5,000 UNIT/0.5 ML SYRINGE SQ SCH (22:53)
[2023-01-18] MEDS: SODIUM CHLORIDE 0.9% 1,000 ML IV SCH (06:35)
[2023-01-18] MEDS: PANTOPRAZOLE 40 MG TABLET PO SCH (06:37)
[2023-01-18 08:05] VITALS: BP 99/66; PULSE 60; RESP 16; TEMP 98
[2023-01-18] MEDS: LORATADINE 10 MG TAB PO SCH (08:09)
[2023-01-18] MEDS: HEPARIN SODIUM,PORCINE/PF 5,000 UNIT/0.5 ML SYRINGE SQ SCH (08:09)
[2023-01-18] MEDS: SYMBICORT 80-4.5 MCG INHALER INHALATION SCH (09:17)
[2023-01-18] MEDS: IPRATROPIUM 0.5 MG/2.5 ML NEBU INHALATION SCH (09:17)
--- NOTE | 2023-01-18 16:49 | P.DS ---
Providers Date of admission: 01/16/23 22:57 Expected date of discharge: 01/18/23 Attending physician: Mohan Camarillo MD Consults: 01/17/23 11:19 Consult Physician Routine Consulting Provider: Moy Almonte Consult Reason/Comments: blood patch Do you want consulting provider notified?: Yes Primary care physician: Stated None Hospital Course: Discharge Diagnosis: Intractable headache status post lumbar puncture. Resolved status post epidural blood patch being placed on 01/17/23. Moderate persistent asthma, not in acute exacerbation. Continue daily medication regimen with Symbicort and Claritin. Hospital Course: Patient is a pleasant 37-year-old female with a past medical history of moderate persistent asthma, GERD, chronic sinusitis/ALLERGIES and currently undergoing evaluation by neurologist for MS. Patient presented to the hospital on 01/16/23 with reports of persistent uncontrolled headache. Patient reports she underwent LP and neurology office for testing of MS earlier in the day and shortly after developed severe intractable headache. Patient reports associated symptoms include nausea, photosensitivity, and dizziness. She underwent full evaluation in the emergency department. Labs completed and reviewed. CBC unremarkable. Coags patient profile normal findings. CMP also unremarkable. CT head was completed and negative for acute intercranial process showing opacification throughout the paranasal sinuses. Patient was admitted under our services and consult was placed to anesthesia for epidural blood patch. Blood patch was completed yesterday afternoon. Patient reports shortly after experiencing full resolution of previous reported intractable headache. Patient seen and evaluated at bedside this morning and she denies having any complaints at this time including headache, lightheadedness, dizziness, changes in vision or hearing, chest pain or palpitations, shortness of breath, or experiencing any numbness/tingling/weakness/swelling in extremities. Vital signs reviewed and stable with blood pressure 102/55, heart rate 74, respiratory rate 14, temp 98.6F and SpO2 of 97% on room air. Patient is medically stable for discharge at this time and to follow up outpatient with PCP. Physical exam: Vital signs reviewed and stable. General: Nontoxic, no distress and appears stated age. Derm: Skin warm and dry, normal coloration for ethnicity. Head: Atraumatic, normocephalic and symmetric. Eyes: EOMs intact, no lid lag, and anicteric sclera Mouth: no lip lesions, mucus membranes moist Cardiovascular: regular rate and rhythm with normal S1S2, no murmur, positive posterior tibial pulses bilaterally, and cap refill < 2 seconds. Lungs: Respirations even, regular, and unlabored on room air. Lungs CTA bilaterally, no rhonchi, no rales, no wheezing, and no accessory muscle usage. Abdominal: soft, nontender to palpation, no guarding, no appreciable organomegaly Ext: ROM intact. No gross muscle atrophy, no edema, no contractures Neuro: Speech clear, face symmetrical and CN II-XII grossly intact with no noted focal neuro deficits Psych: Alert and oriented to person, place, time, and situation. Appropriate and pleasant affect. A total of 28 minutes of time were spent preparing this complex discharge summary. Pt was discharged on 01/18/23 at 10:42 AM. Patient was seen independently by Nurse Practitioner. This document was prepared using [email or web address] dictation software. Please allow for errors in [employer] cement sheet supervisor while rare they do occur. Roberto Hager NP rendered care for this patient independently, reviewed the findings and plan as documented in the note above. I did not physically speak with or examine the patient on this date. Patient Condition at Discharge: Stable Plan - Discharge Summary Discharge Rx Participant: Yes New Discharge Prescriptions: Continue Fexofenadine HCl [Mary Ellen Allergy] 180 mg PO DAILY RABEprazole SODIUM [Aciphex] 20 mg PO DAILY Fluticasone/Umeclidin/Vilanter [Trelegy Ellipta 200-62.5-25] 1 puff INHALATION RT-DAILY Albuterol Nebulized [Ventolin Nebulized] 2.5 mg INHALATION RT-QID PRN PRN Reason: Shortness Of Breath Albuterol Inhaler [Ventolin Hfa Inhaler] 2 puff INHALATION RT-QID PRN PRN Reason: Shortness Of Breath EPINEPHrine (Auto Inject) [Epipen] 0.3 mg IM ONCE PRN #1 each PRN Reason: Anaphylaxis Mepolizumab [Nucala] 1 dose SQ Q28D Discharge Medication List Albuterol Inhaler [Ventolin Hfa Inhaler] 2 puff INHALATION RT-QID PRN 11/05/22 [History] Albuterol Nebulized [Ventolin Nebulized] 2.5 mg INHALATION RT-QID PRN 11/05/22 [History] Fexofenadine HCl [Mary Ellen Allergy] 180 mg PO DAILY 11/05/22 [History] Fluticasone/Umeclidin/Vilanter [Trelegy Ellipta 200-62.5-25] 1 puff INHALATION RT-DAILY 11/05/22 [History] RABEprazole SODIUM [Aciphex] 20 mg PO DAILY 11/05/22 [History] EPINEPHrine (Auto Inject) [Epipen] 0.3 mg IM ONCE PRN #1 each 11/06/22 [Rx] Mepolizumab [Nucala] 1 dose SQ Q28D 01/16/23 [History] Follow up Appointment(s)/Referral(s): Nelson Garcia MD [STAFF PHYSICIAN] - 1 Week Patient Instructions/Handouts: Acute Headache (ED), Epidural Blood Patch (DC) Discharge/Stand Alone Forms: Anes Pain/[facility] Instructions Discharge Disposition: HOME SELF-CARE
== END 2023-01-18 12:06 | disposition home or self-care (01) ==
LOC: EC 16:42 → 6NMEDSUR 22:57
PROVIDERS: ADMIT Internal Medicine; ATTEND Internal Medicine
DX: G43.909 Migraine, unspecified, not intractable, without status migrainosus (principal); Y84.4 Aspiration of fluid as the cause of abnormal reaction of the patient, or of later complication, without mention of misadventure at the time of the procedure; G97.1 Other reaction to spinal and lumbar puncture; J45.40 Moderate persistent asthma, uncomplicated; K21.9 Gastro-esophageal reflux disease without esophagitis; J32.9 Chronic sinusitis, unspecified; Z90.49 Acquired absence of other specified parts of digestive tract; Z88.6 Allergy status to analgesic agent; Z88.1 Allergy status to other antibiotic agents; Z91.012 Allergy to eggs; Z91.02 Food additives allergy status; Z91.013 Allergy to seafood; Z88.8 Allergy status to other drugs, medicaments and biological substances; Z91.048 Other nonmedicinal substance allergy status; Z82.49 Family history of ischemic heart disease and other diseases of the circulatory system
CPT/HCPCS: 96376 ×2; 96361 ×2; 96375 ×2; 96374; 99285; 36415; 94640 ×2; 94760; 80053; 85025; 85610; 85730; 70450; 62273; G0378 ×3; J2270 ×2; J1200; J0780; J2405; J1644 ×2